=== PATIENT | female | born 1985 | race Two or more races ===

== ENCOUNTER 2024-05-05 12:10 | Emergency (ER) | payer BC, OTHER ==
[~2024-05-05] VITALS: Ht 160 cm; Wt 51.2 kg
[2024-05-05 13:55] LABS: Urine Bacteria None Seen /hpf (None Seen); Urine WBC None Seen /hpf (0 - 5)
[2024-05-05 14:00] LABS: Basophils # (auto) 0 10 ^3/uL (0-0.2); Basophils % (auto) 0.4 % (0.0-2.0); Eosinophils # (auto) 0.3 10 ^3/uL (0-0.8); Hematocrit 43.1 % (36.0-46.0); Hemoglobin 14.4 g/dL (12.2-16.2); Lymphocytes # (auto) 1.8 10 ^3/uL (0.4-5.4); Lymphocytes % (auto) 13.9 % (10.0-50.0); Mean Corpuscular Hemoglobin 30.9 pg (28.0-32.0); Mean Corpuscular Hgb Conc. 33.4 g/dL (32.0-36.0); Mean Corpuscular Volume 92.6 fL (80.0-100.0); Monocytes % (auto) 7.7 % (0.0-12.0); Neutrophils # (auto) 9.7 10 ^3/uL (1.6-8.6); Platelet Count (auto) 231 10^3/uL (140-450); Red Blood Cells 4.66 10^6/uL (4.0-5.20); Red Cell Distribution Width 13.7 % (11.8-14.3); White Blood Cell 12.7 10^3/uL (4.4-10.8)
[2024-05-05 14:09] LABS: Alanine Aminotransferase 14 U/L (7-40); Alkaline Phosphatase 38 U/L (46-116); Anion Gap 4 (5-15); Aspartate Aminotransferase 11 U/L (13-40); BUN/Creatinine Ratio 18.3 (10.0-20.0); Bilirubin, Total 0.4 mg/dL (0.2-1.0); Blood Urea Nitrogen 13 mg/dL (9-23); Calcium 9.9 mg/dL (8.7-10.4); Carbon Dioxide 27 mmol/L (20-30); Chloride 107 mmol/L (98-107); Glucose 91 mg/dL (74-106); Lipase 51 U/L (12-53); Potassium 4.3 mmol/L (3.5-5.1); Sodium 138 mmol/L (136-145); Total Protein 7.1 g/dL (5.7-8.2)
[2024-05-05 14:16] LABS: Urine Blood Negative /uL (Negative); Urine Clarity Clear (Clear); Urine Color Light-Yellow (Yellow); Urine Protein, UAD Negative (Negative); Urine Specific Gravity 1.014 (1.001-1.035); Urine Urobilinogen Normal (Negative); Urine pH 6.5 (5.0-9.0)
[2024-05-05] MEDS ORDERED: IOHEXOL 350 MG/ML 100ML IJ ONE (14:36)
[2024-05-05 14:42] LABS: Amphetamine Screen, Urine Neg (NEGATIVE); Benzodiazephine Screen, Urine Neg (NEGATIVE)
[2024-05-05 14:43] LABS: Barbiturate Scree,Urine Neg (NEGATIVE); Cannabinoid Screen, Urine Neg (NEGATIVE); Cocaine Screen, Urine Neg (NEGATIVE); Opiate Scree,Urine Neg (NEGATIVE); Phencyclidine Screen, Urine Neg (NEGATIVE)
[2024-05-05 17:10] VITALS: BP 118/91; TEMP 97.9
[2024-05-05 17:11] VITALS: PULSE 62; RESP 14; O2SAT 100
[2024-05-05] MEDS: SUCRALFATE 1 GM TAB PO ONE (17:33)
[2024-05-05] MEDS: LIDOCAINE VISCOUS 2% 15ML UD PO ONE (17:33)
== END 2024-05-05 17:39 | disposition home or self-care (01) ==
LOC: ER 12:10
DX: R10.33 Periumbilical pain (principal); R10.13 Epigastric pain; R10.2 Pelvic and perineal pain
CPT/HCPCS: 36415; 74177; 80053; 80307; 81001; 83605; 83690; 84484; 84702; 85025; 99285; Q9967